=== PATIENT | male | born 1960 | race Asian ===

== ENCOUNTER 2020-07-24 19:46 | Inpatient (IN) | payer OTHER, SELFPAY ==
[~2020-07-24] VITALS: Ht 175.3 cm; Wt 90.7 kg
[2020-07-24 19:56] VITALS: BP_SYST 198
--- NOTE | 2020-07-24 20:20 | NUR ---
Pt is currently on a 5150.
[2020-07-24] MEDS ORDERED: LORazepam 2 MG/ML VIAL IVP ONE ×2 (20:30→23:45)
[2020-07-24] MEDS ORDERED: NACL 0.9% 1,000 ML IV ONE (20:30)
--- NOTE | 2020-07-24 20:30 | NUR ---
Placed in room 1 . Placed on cardiac catheterization technician, blood pressure machine and pulse oximeter. To gown for exam. Side rails up.
--- NOTE | 2020-07-24 20:35 | NUR ---
BIB ALS for lexapro ingestion of 10mg x 30 pills,attempted suicide. Pt is AxOx3, appears anxious and agitated. Pt has IV 16 rac placed on scene by paramedics. Pt arrived to [facility] at 1930 for voluntary admission. Pt reports depression and suicidal thoughts. Denies cough, sob and cp.
--- NOTE | 2020-07-24 20:37 | NUR ---
Param Rubin from [place] at bedside.
--- NOTE | 2020-07-24 20:40 | NUR ---
ER at bedside examining patient.
--- NOTE | 2020-07-24 21:00 | NUR ---
Called Poison Control at [phone] and spoke with . Per recommendations: Jeet. Dr. Guadarrama notified. Will continue to monitor patient. Recommendations include 12 hour observation. Lexapro can have delayed effects such as seizures. Benzos can be given as needed. QRS prolonged admission of sodium bicarb bolus to be administered. CMP, BMP, UDS, UA
[2020-07-24 21:07] LABS: BASOPHILS % (AUTO) 0.6 % (0.0-2.0); EOSINOPHILS % (AUTO) 0.1 % (0.0-4.0); HEMATOCRIT 41.9 % (36-54); HEMOGLOBIN 13.8 g/dL (14.0-18.0); LYMPHOCYTES # (AUTO) 1.2 K/uL (1.0-5.5); LYMPHOCYTES % (AUTO) 15.3 % (20.5-51.5); MEAN CORPUSCULAR HEMOGLOBIN 29 pg (27-31); MEAN CORPUSCULAR HGB CONC 33 % (32-36); MEAN CORPUSCULAR VOLUME 88 fL (79.0-98.0); MONOCYTES # (AUTO) 0.8 K/uL (0.0-1.0); MONOCYTES % (AUTO) 10.3 % (1.7-9.3); NEUTROPHILS % (AUTO) 73.7 % (40.0-70.0); PLATELET COUNT (AUTO) 219 K/uL (130-430); RED BLOOD CELL COUNT(AUTO) 4.75 MIL/uL (4.2-6.2); RED CELL DISTRIBUTION WIDTH 16.2 % (9.0-15.0); WHITE BLOOD COUNT (AUTO) 8.1 K/uL (4.8-10.8)
[2020-07-24 21:24] LABS: ANION GAP 11 (5-15); CALCIUM 8.4 mg/dL (8.4-11.0); CHLORIDE 88 mmol/L (98-107); CREATININE 0.99 mg/dL (0.55-1.30); GLUCOSE 107 mg/dL (70-99); POTASSIUM 3.3 mmol/L (3.5-5.1); SODIUM SERUM 122 mmol/L (136-145); UREA NITROGEN, BLOOD 10 mg/dL (8-21)
[2020-07-24 21:38] LABS: ALANINE AMINOTRANSFERASE 37 U/L (12-78); ALBUMIN 3.5 g/dL (3.4-4.8); ALCOHOL, BLOOD 4 mg/dL (<10); ASPARTATE AMINOTRANSFERASE 18 U/L (10-37); THYROID STIMULATING HORMONE 1.84 uIu/mL (0.36-3.74); TOTAL BILIRUBIN 0.6 mg/dL (0.0-1.0)
[2020-07-24 21:39] LABS: ACETAMINOPHEN < 1 ug/mL (1-30); GFR AFRICAN AMERICAN 99 mL/min (>90)
--- NOTE | 2020-07-24 22:00 | NUR ---
Pt requesting medication for anxiety. No other concerns at this time.
[2020-07-24 22:07] LABS: BILIRUBIN,URINE NEGATIVE (NEGATIVE); BLOOD, URINE NEGATIVE (NEGATIVE); CLARITY/URINE CLEAR (CLEAR); COLOR,URINE YELLOW (YELLOW); GLUCOSE,URINE NEGATIVE (NEGATIVE); KETONES,URINE 1+ (NEGATIVE); LEUKOCYTE ESTERASE ,URINE NEGATIVE (NEGATIVE); NITRITE, URINE NEGATIVE (NEGATIVE); PH,URINE 5.5 (5.0-8.0); PROTEIN URINE NEGATIVE (NEGATIVE); UROBILINOGEN,URINE 0.2 (0.2-1.0)
[2020-07-24 22:26] LABS: BARBITURATE, URINE NEGATIVE (NEG <=200); BENZODIAZEPINE, URINE NEGATIVE (NEG <=150); CANNABINOID, URINE NEGATIVE (NEG <=50); COCAINE, URINE NEGATIVE (NEG <=150); METHAMPHETAMINES SCREEN,URINE NEGATIVE (NEG <=500); OPIATE, URINE NEGATIVE (NEG <=100); PHENCYCLIDINE SCREEN,URINE NEGATIVE (NEG <=25); UR TRICYCLIC ANTIDEPRESSANTS NEGATIVE (NEG <=300); URINE AMPHETAMINE NEGATIVE (NEG <=500); URINE METHADONE NEGATIVE (NEG <=200); URINE OXYCODONE SCREEN NEGATIVE (NEG <=100); URINE PROPOXYPHENE SCREEN NEGATIVE (NEG <=300)
[2020-07-24] MEDS ORDERED: LORazepam 2 MG/ML VIAL ONE (23:38)
--- NOTE | 2020-07-24 23:40 | NUR ---
Jake machuca from [facility] at bedside.
--- NOTE | 2020-07-24 23:45 | NUR ---
Pt requesting medication for anxiety. aware
--- NOTE | 2020-07-25 01:57 | NUR ---
JUAN RAMON LOBO FROM [facility] CALLED TO GET AN UPDATE SO PATIENT IS STAFFED WITH A SITTER WHILE HERE IN ER.
--- NOTE | 2020-07-25 03:15 | NUR ---
Jovanna Rosales at bedside.
[2020-07-25] MEDS ORDERED: LORazepam 2 MG/ML VIAL IVP PRN (04:45)
[2020-07-25] MEDS: NACL 0.9% 1,000 ML IV SCH ×2 (05:30→21:03)
[2020-07-25] MEDS ORDERED: NOR10 PO (06:39)
[2020-07-25] MEDS ORDERED: HYDR25TA4 PO (06:39)
[2020-07-25] MEDS ORDERED: METO25TA6 PO (06:45)
[2020-07-25] MEDS ORDERED: ASA81 PO (06:46)
--- NOTE | 2020-07-25 06:46 | NUR ---
Medication reconciliation completed with information provided by patient. Any prior medication reconciliation on file was reviewed and corrected.
--- NOTE | 2020-07-25 07:14 | NUR ---
Report given to Denisha for continuation of care.
--- NOTE | 2020-07-25 07:18 | NUR ---
Patient moved to bed 5.
--- NOTE | 2020-07-25 07:20 | NUR ---
report received from Charis DELATORRE. Pt is currently on 5150 hold for SI. Currently sleeping in the room
--- NOTE | 2020-07-25 08:43 | NUR ---
Dietary called for breakfast tray.
[2020-07-25 08:59] LABS: BASOPHILS % (AUTO) 0.5 % (0.0-2.0); EOSINOPHILS % (AUTO) 0.1 % (0.0-4.0); HEMATOCRIT 44.5 % (36-54); HEMOGLOBIN 14.8 g/dL (14.0-18.0); LYMPHOCYTES # (AUTO) 1.5 K/uL (1.0-5.5); LYMPHOCYTES % (AUTO) 24.7 % (20.5-51.5); MEAN CORPUSCULAR HEMOGLOBIN 29 pg (27-31); MEAN CORPUSCULAR HGB CONC 33 % (32-36); MEAN CORPUSCULAR VOLUME 87 fL (79.0-98.0); MONOCYTES # (AUTO) 0.7 K/uL (0.0-1.0); MONOCYTES % (AUTO) 10.5 % (1.7-9.3); NEUTROPHILS % (AUTO) 64.2 % (40.0-70.0); PLATELET COUNT (AUTO) 245 K/uL (130-430); RED BLOOD CELL COUNT(AUTO) 5.09 MIL/uL (4.2-6.2); WHITE BLOOD COUNT (AUTO) 6.2 K/uL (4.8-10.8)
--- NOTE | 2020-07-25 09:30 | NUR ---
pt is eating breakfast in the room
[2020-07-25 09:57] LABS: CALCIUM 8.4 mg/dL (8.4-11.0); CREATININE 0.72 mg/dL (0.55-1.30); POTASSIUM 3.4 mmol/L (3.5-5.1)
--- NOTE | 2020-07-25 10:00 | NUR ---
Dr. Burrell at the bedside
--- NOTE | 2020-07-25 10:00 | NUR ---
security at the bedside wanding the pt. Belongings given to security
[2020-07-25 10:03] LABS: ALBUMIN 3.3 g/dL (3.4-4.8); TOTAL BILIRUBIN 0.4 mg/dL (0.0-1.0)
--- NOTE | 2020-07-25 10:30 | NUR ---
Dr. Davalos at the bedside
--- NOTE | 2020-07-25 11:30 | NUR ---
pt is sleeping in the room
--- NOTE | 2020-07-25 11:59 | NUR ---
Dietary called for lunch tray.
--- NOTE | 2020-07-25 12:00 | NUR ---
Dr. Mancilla at the bedside.
--- NOTE | 2020-07-25 12:26 | NUR ---
pt is currently in the restroom
--- NOTE | 2020-07-25 13:30 | NUR ---
pt eating lunch at the bedside
--- NOTE | 2020-07-25 15:30 | NUR ---
pt is awake and laying in bed.
--- NOTE | 2020-07-25 16:30 | NUR ---
assited the pt to the restroom.
--- NOTE | 2020-07-25 18:30 | NUR ---
pt is sleeping in bed
--- NOTE | 2020-07-25 19:18 | NUR ---
report given to Charis DELATORRE. Pt currently eating dinner in bed.
--- NOTE | 2020-07-25 19:23 | NUR ---
Report received from Denisha DELATORRE for continuation of care
--- NOTE | 2020-07-25 20:15 | NUR ---
Security at bedside, patient wanded.
--- NOTE | 2020-07-25 20:30 | NUR ---
Pt awake, in bed. No complaints at this time.
[2020-07-25] MEDS ORDERED: LORazepam 2 MG/ML VIAL ONE (21:07)
--- NOTE | 2020-07-25 21:14 | NUR ---
Pt remedicated for anxiety. Pt given ativan PRN order. Vitals wnl.
--- NOTE | 2020-07-26 00:30 | NUR ---
Pt awake in bed, no complaints at this time.
--- NOTE | 2020-07-26 01:50 | NUR ---
Patient sleeping comfortably in bed. No acute distress. Rise and fall of chest is symmetrical. Will continue to monitor.
--- NOTE | 2020-07-26 03:40 | NUR ---
Pt resting, symmetric chest rise and fall. Easily arousable.
--- NOTE | 2020-07-26 05:55 | NUR ---
Pt resting symmtric chest rise and fall. No complaints at this time, easily arousable.
--- NOTE | 2020-07-26 07:20 | NUR ---
REPORT RECEIVED FROM JUAN RAMON KINSEY FOR CONTINUING CARE
[2020-07-26 07:43] LABS: BASOPHILS % (AUTO) 0.4 % (0.0-2.0); EOSINOPHILS % (AUTO) 0.2 % (0.0-4.0); HEMATOCRIT 45.3 % (36-54); HEMOGLOBIN 15.3 g/dL (14.0-18.0); LYMPHOCYTES # (AUTO) 1.8 K/uL (1.0-5.5); LYMPHOCYTES % (AUTO) 24.5 % (20.5-51.5); MEAN CORPUSCULAR HEMOGLOBIN 30 pg (27-31); MEAN CORPUSCULAR HGB CONC 34 % (32-36); MEAN CORPUSCULAR VOLUME 87 fL (79.0-98.0); MONOCYTES # (AUTO) 0.9 K/uL (0.0-1.0); NEUTROPHILS # (AUTO) 4.7 K/uL (1.8-7.7); NEUTROPHILS % (AUTO) 62.9 % (40.0-70.0); PLATELET COUNT (AUTO) 297 K/uL (130-430); RED BLOOD CELL COUNT(AUTO) 5.19 MIL/uL (4.2-6.2); RED CELL DISTRIBUTION WIDTH 15.9 % (9.0-15.0); WHITE BLOOD COUNT (AUTO) 7.5 K/uL (4.8-10.8)
--- NOTE | 2020-07-26 07:50 | NUR ---
Patient placed on suicide precautions. Patient placed in room within close proximity to nurses' station for closer observation and monitoring. All clothing removed, placed in hospital gown. Metal detector wand used to further screen patient of any potential hazardous belongings. All belongings inventoried, placed in bags and removed from room. Cabinets locked. BP and pulse oximeter cords, and plaster machine tender leads removed.
--- NOTE | 2020-07-26 08:00 | NUR ---
PT GIVEN BREAKFAST TRAY, EATING IN BED
[2020-07-26 08:12] LABS: ALBUMIN 3.2 g/dL (3.4-4.8); CALCIUM 8.4 mg/dL (8.4-11.0); CREATININE 0.79 mg/dL (0.55-1.30); POTASSIUM 3.6 mmol/L (3.5-5.1); TOTAL BILIRUBIN 0.3 mg/dL (0.0-1.0)
--- NOTE | 2020-07-26 09:45 | NUR ---
PT AMBULATED TO BATHROOM, STEADY GAIT
[2020-07-26] MEDS: NACL 0.9% 1,000 ML IV SCH (10:06)
--- NOTE | 2020-07-26 11:00 | NUR ---
# 20 gauge angiocath placed to LEFT WRIST. Use of asceptic technique. Opsite placed over site. Blood return noted. Blood for lab drawn from site. Flushed with 10 cc of normal saline. No evidence of infiltration noted. Patient tolerated well.
--- NOTE | 2020-07-26 11:43 | NUR ---
PT PROVIDED WITH LUNCH TRAY
--- NOTE | 2020-07-26 11:48 | NUR ---
DR. BEAVERS AT THE BEDSIDE. TO DC TO [facility]
--- NOTE | 2020-07-26 12:08 | NUR ---
OSCAR ENCINAS AT [facility]. PACKET TO BE FAXED OVER FOR REVIEW
--- NOTE | 2020-07-26 12:16 | NUR ---
Artie Swan RN spoke to Margy at [facility]. requested fax of pt clinicals and facesheet. fax: [phone]
--- NOTE | 2020-07-26 12:31 | NUR ---
SPOKE WITH [employer] DRESS DRAPER, SHE WILL ATTEMPT TO FIND PLACEMENT.
--- NOTE | 2020-07-26 13:22 | NUR ---
OSCAR RAE RN AT [facility]. PT ACCEPTED UNDER DR. KING FOR TRANSFER.
--- NOTE | 2020-07-26 14:08 | NUR ---
Pt resting at this time, no s/s of distress.
--- NOTE | 2020-07-26 14:41 | NUR ---
SS Notes SHIPPING COORDINATOR spokle to ED Rn Matthew. Pt came fm [facility] for medical clearance. He had been put a 5150 while at [facility]. Pt. has been discharged and will be going back to [facility]. SHIPPING COORDINATOR called and spoke to Waleska, from admissions from [facility], . Waleska informed SHIPPING COORDINATOR that their Rn is giving report to our ED Rn and pt. will be re-admitted to [facility] today and the ambulance is on their way to [facility] patient. SHIPPING COORDINATOR will remain available as needed. ED RN Matthew stated she did not need anything else.
--- NOTE | 2020-07-26 15:58 | NUR ---
Patient to be transferred to [facility]. Is being transferred due to higher level of care. Receiving facility has accepting physician and available space. ER physician has signed transfer form. Patient or responsible green party has agreed to transfer and signed form. Patient belongings inventoried and will be sent with patient. Copy of nursing notes, lab reports, EKG, Physicians Orders and X-rays to be sent with patient. Report called to JUAN RAMON RAE at receiving facility. Receiving physician is DR. KING. [facility] ambulance service has been called for transfer. ETA is 1530.
[2020-07-26 15:59] VITALS: BP_SYST 134
== END 2020-07-26 15:58 | DRG 918 ==
LOC: SED 19:46 → STU 07-25 05:05
PROVIDERS: ADMIT Internal Medicine Hospice and Palliative Medicine; ATTEND Internal Medicine Hospice and Palliative Medicine
DX: T43.222A Poisoning by selective serotonin reuptake inhibitors, intentional self-harm, initial encounter (principal); E87.1 Hypo-osmolality and hyponatremia; F33.9 Major depressive disorder, recurrent, unspecified; Y92.89 Other specified places as the place of occurrence of the external cause; I45.81 Long QT syndrome; T14.91XA Suicide attempt, initial encounter; F29 Unspecified psychosis not due to a substance or known physiological condition; F41.9 Anxiety disorder, unspecified; I10 Essential (primary) hypertension; Z20.828 Contact with and (suspected) exposure to other viral communicable diseases
CPT/HCPCS: 36415; 80053; 80307; 81003; 82533; 82550-TC; 84443-TC; 85025; 93005; 96361; 96374; 96375; 99285; G0378; G0480; G0481; G0482; J2060